=== PATIENT | female | born 1955 | race Caucasian/White ===

== ENCOUNTER → 2017-05-24 | Outpatient (CLI) | payer MEDICARE, OTHER | LOC: RAD 16:51 | DX: M51.9 Unspecified thoracic, thoracolumbar and lumbosacral intervertebral disc disorder (principal); M54.5 Low back pain; E11.9 Type 2 diabetes mellitus without complications; R20.2 Paresthesia of skin; M10.9 Gout, unspecified; M15.9 Polyosteoarthritis, unspecified; F32.9 Major depressive disorder, single episode, unspecified; E55.9 Vitamin D deficiency, unspecified; E03.9 Hypothyroidism, unspecified; F41.9 Anxiety disorder, unspecified; R20.0 Anesthesia of skin; R10.9 Unspecified abdominal pain; G89.29 Other chronic pain; K57.30 Diverticulosis of large intestine without perforation or abscess without bleeding; M47.892 Other spondylosis, cervical region; M47.894 Other spondylosis, thoracic region | CPT/HCPCS: 72050; 72072; 72110 ==

== ENCOUNTER 2021-10-20 23:47 | Emergency (ER) | payer MEDICARE ==
[~2021-10-20 23:47] MED LIST: ALBUTEROL2.5 MG/3 M INH; ALDACTONE 25MG25 MG PO; ALPRAZOLAM0.5 MG PO; AMIODARONE HCL400 MG PO; AMLODIPINE BESY10 MG PO; ASPIR 8181 MG PO; ASPIRIN CHEWABL81 MG PO; AUGMENTIN 875-1 EACH PO; BETAPACE 80MG T80 MG PO; BROMFED DM COU473 ML PO; COREG 25MG TAB25 MG PO; CRESTOR40 MG PO; ELIQUIS 5 MG TAB5 MG PO; FISH OIL CONC1 EACH PO; FLEXERIL 10 MG10 MG PO; FLONASE ALLER15.8 ML; FLUOXETINE HCL40 MG PO; FOSAMAX70 MG PO; HUMALOG100 UNIT/3 SC; HYDROCHLOROTHIA25 MG PO; HYDROCODON-ACE1 EAC2 PO; LANTUS SOL100 UNIT/1 SQ; LIDOCAINE1 EAC1 TP; LIPITOR40 MG PO; LISINOPRIL10 MG PO; NASONEX17 GM; NEURONTIN 400400 MG PO; NIFEDIPINE ER30 M1 PO; NITROSTAT 0.40.4 MG SL; NITROSTAT0.4 MG SL; PHENERGAN 25 MG25 M1 PO; PRILOSEC OTC20 MG PO; PROPAFENONE HC150 MG PO; PROVENTIL HFA 61 INH INH; PROZAC40 MG PO; SINGULAIR10 MG PO; SYMBICORT 16010.2 GM INH; SYNTHROID125 MCG PO; SYNTHROID50 MCG PO; TAMIFLU 75 MG C75 MG PO; TRICOR145 MG PO; ULORIC80 MG PO; VITAMIN D250000 UNIT PO; WELLBUTRIN SR100 MG PO; ZESTRIL 40 MG T40 MG PO; ZESTRIL40 MG PO; ZOFRAN ODT 4 MG4 MG SL
[2021-10-21 00:26] LABS: HEMOGLOBIN 14.2 gm/dl (12.3-15.3); RED BLOOD COUNT 4.73 M/UL (4.00-5.10); WHITE BLOOD COUNT 11.1 K/UL (4.5-11.0)
[2021-10-21 00:52] LABS: BUN/CREATININE RATIO 21 (0-10)
== END 2021-10-21 03:29 | disposition home or self-care (01) ==
LOC: ER1 23:47
PROVIDERS: Family Medicine
DX: I48.91 Unspecified atrial fibrillation (principal); I10 Essential (primary) hypertension; J44.9 Chronic obstructive pulmonary disease, unspecified; F17.200 Nicotine dependence, unspecified, uncomplicated
CPT/HCPCS: 80053; 82550; 82553; 83874; 84484; 85025; 93005; 99285

== ENCOUNTER 2022-04-09 18:21 | Emergency (ER) | payer MEDICARE ==
[~2022-04-09 18:21] MED LIST changes: -HYDRALAZINE HCL25 MG PO
[2022-04-09 18:55] LABS: HEMOGLOBIN 14.7 gm/dl (12.3-15.3); RED BLOOD COUNT 4.94 M/UL (4.00-5.10)
[2022-04-09] MEDS ORDERED: HYDRALAZINE HCL25 MG PO (23:03)
== END 2022-04-09 23:58 | disposition home or self-care (01) ==
LOC: ER1 18:21
PROVIDERS: Emergency Medicine
DX: I10 Essential (primary) hypertension (principal); I48.91 Unspecified atrial fibrillation; E78.5 Hyperlipidemia, unspecified; J44.9 Chronic obstructive pulmonary disease, unspecified; Z90.710 Acquired absence of both cervix and uterus
CPT/HCPCS: 70450; 70496; 70498; 71045; 80053; 81001; 82550; 82553; 83880; 84439; 84443; 84484; 85025; 87086; 93005; 96374; 99284; J0360; Q9967

== ENCOUNTER → 2022-04-09 | Outpatient (CLI) | payer MEDICARE ==
[~2022-04-09] MED LIST changes: +HYDRALAZINE HCL25 MG PO
== END ==
LOC: RAD 12:59
DX: M62.81 Muscle weakness (generalized) (principal); E11.65 Type 2 diabetes mellitus with hyperglycemia; E55.9 Vitamin D deficiency, unspecified; R13.10 Dysphagia, unspecified; I10 Essential (primary) hypertension; M50.322 Other cervical disc degeneration at C5-C6 level; M51.36 Other intervertebral disc degeneration, lumbar region; M51.34 Other intervertebral disc degeneration, thoracic region
CPT/HCPCS: 72050; 72072; 72110

== ENCOUNTER 2022-04-16 11:33 | Emergency (ER) | payer MEDICARE ==
[~2022-04-16 11:33] MED LIST changes: +HYDRALAZINE HCL25 MG PO
[2022-04-16 13:32] LABS: RED BLOOD COUNT 5.04 M/UL (4.00-5.10); WHITE BLOOD COUNT 10.6 K/UL (4.5-11.0)
[2022-04-16] MEDS ORDERED: CYCLOBENZAPRINE5 MG PO (18:39)
== END 2022-04-16 19:07 | disposition home or self-care (01) ==
LOC: ER1 11:33
PROVIDERS: Physician Assistant
DX: M50.30 Other cervical disc degeneration, unspecified cervical region (principal); E11.9 Type 2 diabetes mellitus without complications; E78.5 Hyperlipidemia, unspecified; I10 Essential (primary) hypertension
CPT/HCPCS: 71045; 80053; 82550; 82553; 84439; 84443; 84484; 85025; 85652; 86140; 93005; 96374; 99285; J2930

== ENCOUNTER 2022-08-21 17:42 | Emergency (ER) | payer MEDICARE ==
[~2022-08-21 17:42] MED LIST changes: -ALPRAZOLAM0.5 MG PO; +CYCLOBENZAPRINE5 MG PO; +LISINOPRIL20 MG PO; +PROZAC20 MG PO; -SYNTHROID125 MCG PO; +SYNTHROID88 MCG PO; +TRESIBA SQ; +VASCEPA1 GM PO; +XANAX1 MG PO
== END 2022-08-22 00:20 | disposition home or self-care (01) ==
LOC: ER1 17:42
DX: S46.001A Unspecified injury of muscle(s) and tendon(s) of the rotator cuff of right shoulder, initial encounter (principal); X50.9XXA Other and unspecified overexertion or strenuous movements or postures, initial encounter; Y92.410 Unspecified street and highway as the place of occurrence of the external cause
CPT/HCPCS: 73030; 99283

== ENCOUNTER 2022-08-26 18:39 | Observation (INO) | payer MEDICARE ==
[~2022-08-26] VITALS: Ht 167.6 cm; Wt 83.7 kg
[2022-08-26 20:15] LABS: HEMOGLOBIN 15.1 gm/dl (12.3-15.3); RED BLOOD COUNT 5.01 M/UL (4.00-5.10); WHITE BLOOD COUNT 10.2 K/UL (4.5-11.0)
[2022-08-27] MEDS ORDERED: BETAPACE 80MG T80 MG PO ×2 (11:39)
== END 2022-08-27 13:15 | disposition home or self-care (01) ==
LOC: ER1 18:39 → CDU 23:27 → PROG CARE 23:27
PROVIDERS: Student in an Organized Health Care Education/Training Program; ADMIT Internal Medicine
DX: I48.0 Paroxysmal atrial fibrillation (principal); I47.2 Ventricular tachycardia; I10 Essential (primary) hypertension; I25.2 Old myocardial infarction; I25.10 Atherosclerotic heart disease of native coronary artery without angina pectoris; E03.9 Hypothyroidism, unspecified; E78.5 Hyperlipidemia, unspecified; E11.9 Type 2 diabetes mellitus without complications; M10.9 Gout, unspecified; Z95.5 Presence of coronary angioplasty implant and graft; Z90.49 Acquired absence of other specified parts of digestive tract; Z90.710 Acquired absence of both cervix and uterus; Z98.890 Other specified postprocedural states; Z79.01 Long term (current) use of anticoagulants; Z79.82 Long term (current) use of aspirin; Z79.4 Long term (current) use of insulin; Z79.890 Hormone replacement therapy; Z79.899 Other long term (current) drug therapy
CPT/HCPCS: ECHO; 36415; 71045; 80053; 82550; 82553; 83735; 84484; 85025; 85379; 93005; 93270; 93306; 99285; G0378; Q9967